=== PATIENT | female | born 1955 | race Caucasian/White ===

== ENCOUNTER 2017-07-14 17:16 | Emergency (ER) | payer BC ==
[~2017-07-14] VITALS: Ht 162.6 cm; Wt 91.0 kg
[2017-07-14 17:24] VITALS: BP 136/88
== END 2017-07-14 18:31 | disposition home or self-care (01) ==
LOC: ER 17:54
DX: R20.2 Paresthesia of skin (principal); Z90.49 Acquired absence of other specified parts of digestive tract
CPT/HCPCS: 99283